=== PATIENT | female | born 1930 | race Caucasian/White ===

== ENCOUNTER 2019-07-20 18:12 | Emergency (ER) | payer MEDICARE ==
[2019-07-20 18:25] VITALS: TEMP 98.6
[2019-07-20] MEDS ORDERED: SODIUM CHLORIDE 0.9% 500 ML 500 ML IV STA (18:40)
[2019-07-20] MEDS ORDERED: LIDOCAINE 5% PATCH TOPICAL STA (18:40)
[2019-07-20 19:19] LABS: Basophils % (A) 0 %; Eosinophils # (A) 0.4 k/uL (0-0.7); Eosinophils % (A) 5 %; HCT 40.3 % (34.0-46.0); HGB 12.9 gm/dL (11.4-16.0); Lymphocytes # (A) 1.4 k/uL (1.0-4.8); Lymphocytes % (A) 20 %; MCH 30.9 pg (25.0-35.0); MCV 96.4 fL (80.0-100.0); Mean Platelet Volume 7.6; Monocytes # (A) 0.4 k/uL (0-1.0); Monocytes % (A) 6 %; Neutrophils # (A) 4.8 k/uL (1.3-7.7); Neutrophils % (A) 67 %; Platelet Count 321 k/uL (150-450); RBC 4.18 m/uL (3.80-5.40); RDW 13.8 % (11.5-15.5); WBC 7.1 k/uL (3.8-10.6)
[2019-07-20 19:28] LABS: INR 0.9 (<1.2); Partial Thromboplastin Time 23.8 sec (22.0-30.0); Prothrombin Time 9.6 sec (9.0-12.0)
[2019-07-20 19:29] LABS: Calcium 9.6 mg/dL (8.4-10.2); Potassium 4.2 mmol/L (3.5-5.1); Total Bilirubin 0.2 mg/dL (0.2-1.3); Total Protein 6.6 g/dL (6.3-8.2)
--- NOTE | 2019-07-20 19:32 | XR ---
EXAMINATION TYPE: PA chest and left rib series, 5 views DATE OF EXAM: 07/20/2019 Comparison: 10/05/2013 Clinical History: 89-year-old female with fall and left rib pain Findings: Heart upper limits of normal in size. Rounded retrocardiac opacity suggests a moderate to large hiata l hernia. Strandy opacity at the left base compatible with atelectasis. Retrocardiac assessment limit ed due to underlying hiatal hernia. No other consolidation or pleural effusion. Underlying S-shaped scoliosis. No displaced left rib fracture seen. Impression: 1. Underlying moderate to large hiatal hernia. This limits assessment of the retrocardiac region but some adjacent strandy opacity suggests atelectasis. 2. No displaced left rib fracture seen.
--- NOTE | 2019-07-20 19:42 | CT ---
EXAMINATION TYPE: CT brain sue wo con DATE OF EXAM: 07/20/2019 COMPARISON: Brain 10/05/2013 HISTORY: 89-year-old female fall with head injury and neck pain CT DLP: 1254 mGycm Automated exposure control for dose reduction was used. Technique: Examination of the head was done in axial plane without intravenous contrast. Coronal and sagittal reconstructions performed. CT of the cervical spine was obtained in axial plane without intravenous injection of contrast mater ial. Coronal and sagittal reformatted images were obtained from the axial views for evaluation of f ractures, spinal alignment and canal. FINDINGS: Head: There is no evidence of acute intracranial hemorrhage, acute ischemic changes, mass effect, or extra -axial fluid collection. There is no effacement of cerebral sulci or basal subarachnoid cisterns. T here is no hydrocephalus. There is no midline shift. Gill-white matter distinction is preserved. Bulging soft tissue density in the right parasellar region, axial image 16 seems to have been present to some extent on 10/05/2013 as well. Metastatic calcifications within the bilateral carotid siphons. Mild bifrontal cortical atrophy and patchy white matter hypodensities in both cerebral hemispheres. Paranasal sinuses and mastoid air cells are well pneumatized. Orbits and globes are intact. No calvar ial fracture. Cervical spine: Degenerative changes left greater than right TMJ. Advanced hypertrophic facet arthropathy and multilevel uncovertebral joint arthropathy. Degenerative grade 2 anterolisthesis C3-C4, grade 1 retrolisthesis C5-C6 and grade 1 anterolisthesis C6-C7 and C7-T1. No acute fracture of the cervical spine. No craniocervical junction probably, predental space widening, or prevertebral soft tissue swelling. Advanced degenerative change C1 dens articulation. Moderate neural foraminal stenoses at C5-C6. Emphysematous change in the visualized upper lungs. Sagittal and coronal reformatted images confirm above findings. COMBINED IMPRESSION: 1. Bulging soft tissue density right parasellar region seems to have been present to some extent on . Some considerations include vascular ectasia of the internal carotid artery, underlying meni ngioma, or underlying cavernous segment ICA aneurysm. Further CTA evaluation recommended to exclude a neurysm. 2. Mild cortical atrophy and patchy changes of chronic small vessel ischemic disease. Otherwise, no a cute intracranial abnormality seen. 3. No acute fracture of the cervical spine. Moderate to advanced spondylotic change with degenerative grade 2 anterolisthesis C3-C4 and additional levels of grade 1 spondylolisthesis. 4. COPD.
[2019-07-20] MEDS ORDERED: KETOROLAC 30 MG/ML 1 ML VIAL IVP STA (20:39)
--- NOTE | 2019-07-20 20:58 | ED ---
General Adult HPI - General Source: patient Mode of arrival: wheelchair Limitations: no limitations <Aparna Wagoner - Last Filed: 07/20/19 21:21> <Charito Harvey - Last Filed: 07/23/19 13:29> - General Chief complaint: Fall Stated complaint: fall, knee/rib pain Time Seen by Provider: 07/20/19 18:33 - History of Present Illness Initial comments: 89-year-old female patient presents to the emergency department today for evaluation after experiencing a fall. Patient states this is her second fall today. States that today she has been feeling increasingly weak. She did recently have a right mastectomy which is experiencing delayed healing. She does have an appointment with Dr. Larry tomorrow for further evaluation of this. Patient states yesterday she had a fall and did strike her head. Denies loss o f consciousness. States she is having some right-sided neck pain. Today patient hit her ribs during the fall and is reporting a sharp pain with deep inspiration and any type of movement. She denies any shortness of breath, cough, or hemoptysis. Denies any back injury. States that she did fall onto her knees and so her left knee is bruised and sore. States she is able to bear weight and has no pain with flexion. Patient denies any recent rash, fever, chills, abdominal pain, nausea, vomiting, diarrhea, constipation, numbness, tingling, dizziness, weakness, hematuria, dysuria, urinary urgency, urinary frequency, headache, visual changes, or any other complaints. (Aparna Wagoner) - Related Data Home Medications Medication Instructions Recorded Confirmed Metoprolol Succinate (ER) [Toprol 50 mg PO DAILY 09/30/13 10/05/13 XL] NIFEdipine [NIFEdipine ER] 30 mg PO DAILY 09/30/13 10/05/13 Pravastatin Sodium [Pravachol] 20 mg PO DAILY 09/30/13 10/05/13 Previous Rx's Medication Instructions Recorded Lidocaine 5% Patch [Lidoderm] 1 patch TOPICAL DAILY #30 patch 07/20/19 Allergies Allergy/AdvReac Type Severity Reaction Status Date / Time No Known Allergies Allergy Verified 07/20/19 18:25 Review of Systems ROS Other: All systems not noted in ROS Statement are negative. <Aparna Wagoner - Last Filed: 07/20/19 21:21> ROS Other: All systems not noted in ROS Statement are negative. <Charito Harvey Renaldo - Last Filed: 07/23/19 13:29> ROS Statement: Those systems with pertinent positive or pertinent negative responses have been documented in the HPI. Past Medical History Past Medical History: Cancer, Dementia, Hypertension Additional Past Medical History / Comment(s): tubercular abcess,pynoidal cyst, Cody Palsy- facial paralysis, hip replacement, breast cancer History of Any Multi-Drug Resistant Organisms: None Reported Past Surgical History: Appendectomy Additional Past Surgical History / Comment(s): D&C, left mastectomy, Past Psychological History: No Psychological Hx Reported Smoking Status: Former smoker Past Alcohol Use History: None Reported Past Drug Use History: None Reported <Aparna Wagoner - Last Filed: 07/20/19 21:21> General Exam Limitations: no limitations General appearance: alert, in no apparent distress, other (This is a well- developed, well-nourished elderly female patient in no acute distress. Vital signs upon presentation are temperature 98.6F, pulse 79, respirations 18, blood pressure 143/70, pulse ox 94% on room air.) Eye exam: Present: normal appearance, PERRL, EOMI. Absent: scleral icterus, conjunctival injection, periorbital swelling ENT exam: Present: normal exam, normal oropharynx, mucous membranes moist Neck exam: Present: normal inspection, full ROM, other (Nontender, no step-off, no deformity to firm midline palpation of the posterior cervical spine. Full range of motion without pain or limitation.). Absent: tenderness, meningismus, lymphadenopathy Respiratory exam: Present: normal lung sounds bilaterally, chest wall tenderness (Left lateral). Absent: respiratory distress, wheezes, rales, rhonchi, stridor Cardiovascular Exam: Present: regular rate, normal rhythm, normal heart sounds. Absent: systolic murmur, diastolic murmur, rubs, gallop, clicks GI/Abdominal exam: Present: soft, normal bowel sounds. Absent: distended, tenderness, guarding, rebound, rigid Extremities exam: Present: full ROM, normal capillary refill, other (There is mild soft tissue swelling and ecchymosis noted to the left anterior knee. No pain with valgus or varus maneuvers. No pain with full range of motion. Skin is otherwise pink, warm, dry. Cap refills less than 3 seconds. Pedal and posttibial pulses are 2+ and equal bilaterally.). Absent: normal inspection, t enderness, pedal edema, joint swelling, calf tenderness Back exam: Present: normal inspection. Absent: vertebral tenderness Neurological exam: Present: alert, oriented X3, CN II-XII intact Psychiatric exam: Present: normal affect, normal mood Skin exam: Present: warm, dry, intact, normal color. Absent: rash <Aparna Wagoner - Last Filed: 07/20/19 21:21> Course Vital Signs 07/20/19 07/20/19 18:22 21:43 Temperature 98.6 F 98.6 F Pulse Rate 79 67 Respiratory 18 15 Rate Blood Pressure 143/70 134/61 O2 Sat by Pulse 94 L 94 L Oximetry EKG Findings - EKG Comments: EKG Findings:: EKG obtained at 1853 shows normal sinus rhythm with a ventricular rate of 69, WV interval 188, QRS duration 86, QTc 412, QTC 441. No evidence of ST elevation or depression <Aparna Wagoner - Last Filed: 07/20/19 21:21> Medical Decision Making - Lab Data Result diagrams: 07/20/19 19:05 07/20/19 19:05 - Radiology Data Radiology results: report reviewed, image reviewed <Aparna Wagoner - Last Filed: 07/20/19 21:21> - Lab Data Result diagrams: 07/20/19 19:05 07/20/19 19:05 <Charito Harvey - Last Filed: 07/23/19 13:29> - Medical Decision Making 89-year-old female patient presented to the emergency department today for evaluation of fall and weakness. Physical examination did reveal left lateral rib tenderness. Contusion to the left anterior knee. Lungs are clear to auscultation. She is neurologically intact with no focal deficits. CT brain and C-spine was negative, did show evidence for possible aneurysm which patient is aware of and is being monitored by her doctor. Labs reviewed and were unremarkable. Left rib series with chest x-ray was obtained and was negative for displaced fracture. Patient will be treated as if she has a rib fracture due to symptoms. She does have an incentive spirometer at home from recent surgery she is instructed to use this. She'll be given a prescription for Lidoderm patches. She is instructed to use a walker for ambulation and to follow-up with her primary care physician for recheck as soon as possible. On reevaluation she is resting comfortably in bed. I did recheck her oxygen saturation which is 97% and her heart rate is 75. She does agree to discharge. Return parameters were discussed in detail. She verbalizes understanding and agrees with this plan. (Aparna Wagoner) I was available for consultation in the emergency department. The history and physical exam were done by the midlevel provider. I was consulted for this patients care. I reviewed the case with the midlevel provider and based on their presentation of the patient, I agree with the assessment, medical decision making and plan of care as documented. Chart was dictated using [employer] dictation software. Attempts were made to correct any dictation errors however some typographical errors may persist. Patient was seen during a national state of emergency due to the Covid-19 pandemic. (Charito Harvey) - Lab Data Lab Results 07/20/19 07/20/19 07/20/19 Range/Units 19:05 19:05 19:05 WBC 7.1 (3.8-10.6) k/uL RBC 4.18 (3.80-5.40) m/uL Hgb 12.9 (11.4-16.0) gm/dL Hct 40.3 (34.0-46.0) % MCV 96.4 (80.0-100.0) fL MCH 30.9 (25.0-35.0) pg MCHC 32.0 (31.0-37.0) g/dL RDW 13.8 (11.5-15.5) % Plt Count 321 (150-450) k/uL Neutrophils % 67 % Lymphocytes % 20 % Monocytes % 6 % Eosinophils % 5 % Basophils % 0 % Neutrophils # 4.8 (1.3-7.7) k/uL Lymphocytes # 1.4 (1.0-4.8) k/uL Monocytes # 0.4 (0-1.0) k/uL Eosinophils # 0.4 (0-0.7) k/uL Basophils # 0.0 (0-0.2) k/uL PT 9.6 (9.0-12.0) sec INR 0.9 (<1.2) APTT 23.8 (22.0-30.0) sec Sodium 136 L (137-145) mmol/L Potassium 4.2 (3.5-5.1) mmol/L Chloride 102 (98-107) mmol/L Carbon Dioxide 29 (22-30) mmol/L Anion Gap 5 mmol/L BUN 13 (7-17) mg/dL Creatinine 1.03 (0.52-1.04) mg/dL Est GFR (CKD-EPI)AfAm 56 (>60 ml/min/1.73 sqM) Est GFR (CKD-EPI)NonAf 48 (>60 ml/min/1.73 sqM) Glucose 97 (74-99) mg/dL Plasma Lactic Acid Salas (0.7-2.0) mmol/L Calcium 9.6 (8.4-10.2) mg/dL Total Bilirubin 0.2 (0.2-1.3) mg/dL AST 20 (14-36) U/L ALT 9 (4-34) U/L Alkaline Phosphatase 63 (38-126) U/L Troponin I (0.000-0.034) ng/mL Total Protein 6.6 (6.3-8.2) g/dL Albumin 4.0 (3.5-5.0) g/dL Urine Color Urine Appearance (Clear) Urine pH (5.0-8.0) Ur Specific Kerrick (1.001-1.035) Urine Protein (Negative) Urine Glucose (UA) (Negative) Urine Ketones (Negative) Urine Blood (Negative) Urine Nitrite (Negative) Urine Bilirubin (Negative) Urine Urobilinogen (<2.0) mg/dL Ur Leukocyte Esterase (Negative) Urine RBC (0-5) /hpf Urine WBC (0-5) /hpf Ur Squamous Epith Cells (0-4) /hpf Urine Bacteria (None) /hpf Urine Mucus (None) /hpf 07/20/19 07/20/19 07/20/19 Range/Units 19:05 19:05 20:38 WBC (3.8-10.6) k/uL RBC (3.80-5.40) m/uL Hgb (11.4-16.0) gm/dL Hct (34.0-46.0) % MCV (80.0-100.0) fL MCH (25.0-35.0) pg MCHC (31.0-37.0) g/dL RDW (11.5-15.5) % Plt Count (150-450) k/uL Neutrophils % % Lymphocytes % % Monocytes % % Eosinophils % % Basophils % % Neutrophils # (1.3-7.7) k/uL Lymphocytes # (1.0-4.8) k/uL Monocytes # (0-1.0) k/uL Eosinophils # (0-0.7) k/uL Basophils # (0-0.2) k/uL PT (9.0-12.0) sec INR (<1.2) APTT (22.0-30.0) sec Sodium (137-145) mmol/L Potassium (3.5-5.1) mmol/L Chloride (98-107) mmol/L Carbon Dioxide (22-30) mmol/L Anion Gap mmol/L BUN (7-17) mg/dL Creatinine (0.52-1.04) mg/dL Est GFR (CKD-EPI)AfAm (>60 ml/min/1.73 sqM) Est GFR (CKD-EPI)NonAf (>60 ml/min/1.73 sqM) Glucose (74-99) mg/dL Plasma Lactic Acid Salas 1.1 (0.7-2.0) mmol/L Calcium (8.4-10.2) mg/dL Total Bilirubin (0.2-1.3) mg/dL AST (14-36) U/L ALT (4-34) U/L Alkaline Phosphatase (38-126) U/L Troponin I <0.012 (0.000-0.034) ng/mL Total Protein (6.3-8.2) g/dL Albumin (3.5-5.0) g/dL Urine Color Light Yellow Urine Appearance Clear (Clear) Urine pH 6.0 (5.0-8.0) Ur Specific Kerrick 1.010 (1.001-1.035) Urine Protein Negative (Negative) Urine Glucose (UA) Negative (Negative) Urine Ketones Negative (Negative) Urine Blood Negative (Negative) Urine Nitrite Negative (Negative) Urine Bilirubin Negative (Negative) Urine Urobilinogen <2.0 (<2.0) mg/dL Ur Leukocyte Esterase Trace H (Negative) Urine RBC 1 (0-5) /hpf Urine WBC 3 (0-5) /hpf Ur Squamous Epith Cells 1 (0-4) /hpf Urine Bacteria Rare H (None) /hpf Urine Mucus Rare H (None) /hpf - Radiology Data CT brain C-spine was obtained. Report was reviewed in its entirety. Impression by Dr. Carmona shows bulging soft tissue density right parasternal region which is seems to have been present to some extent in . Some considerations include vascular ectasia of the internal carotid artery, underlying meningioma, or underlying cavernous segment ICA aneurysm. Further CTA evaluation recommended to exclude aneurysm. Mild cortical atrophy and patchy changes of chronic small vessel ischemic disease. Otherwise, no acute intracranial abnormalities seen. No acute fracture of the cervical spine. Moderate to advanced spondylotic changes with degenerative grade 2 anterolisthesis C3 to C4 and additional levels of grade 1 spondylolisthesis. COPD. 5 views of the ribs and chest is obtained. Report was reviewed in its entirety. Impression by Dr. Carmona shows underlying moderate to large hiatal hernia. This limited assessment of the retrocardiac region with some adjacent strandy opacity suggesting atelectasis. No displaced left rib fracture seen (Aparna Wagoner) Disposition Is patient prescribed a controlled substance at d/c from ED?: No Time of Disposition: 21:19 <Aparna Wagoner - Last Filed: 07/20/19 21:21> <Charito Harvey - Last Filed: 07/23/19 13:29> Clinical Impression: Left rib fracture, Contusion of left knee, Head injury, Weakness Disposition: HOME SELF-CARE Condition: Good Instructions (If sedation given, give patient instructions): Rib Fracture (ED), Fall Prevention for Older Adults (ED), Head Injury (ED), Contusion in Adults (ED) Additional Instructions: Perform coughing and deep breathing exercises 10 times an hour while awake. Follow-up with your primary care physician for recheck in 1-2 days. Return to the emergency department immediately for any new, worsening, or concerning symptoms. Prescriptions: Lidocaine 5% Patch [Lidoderm] 1 patch TOPICAL DAILY #30 patch Referrals: Edgar Lagunas MD [Primary Care Provider] - 1-2 days
[2019-07-20 21:11] LABS: Appearance,Urine Clear (Clear); Bacteria,Urine Rare /hpf; Bilirubin,Urine Negative (Negative); Blood,Urine Negative (Negative); Color,Urine Light Yellow; Glucose,Urine (UA) Negative (Negative); Ketones,Urine Negative (Negative); Leukocyte Esterase,Urine Trace (Negative); Mucus,Urine Rare /hpf; Nitrite,Urine Negative (Negative); Protein,Urine Negative (Negative); RBC,Urine 1 /hpf (0-5); Squamous Epithelial Cell,Urine 1 /hpf (0-4); Urobilinogen,Urine <2.0 mg/dL (<2.0); WBC,Urine 3 /hpf (0-5)
[2019-07-20 21:45] VITALS: BP 134/61; PULSE 67; RESP 15
== END 2019-07-20 21:43 | disposition home or self-care (01) ==
LOC: EC 18:12
DX: S22.32XA Fracture of one rib, left side, initial encounter for closed fracture (principal); S80.02XA Contusion of left knee, initial encounter; S09.90XA Unspecified injury of head, initial encounter; R53.1 Weakness; I10 Essential (primary) hypertension; G51.0 Bell's palsy; F03.90 Unspecified dementia, unspecified severity, without behavioral disturbance, psychotic disturbance, mood disturbance, and anxiety; Z79.899 Other long term (current) drug therapy; Z85.3 Personal history of malignant neoplasm of breast; Z87.891 Personal history of nicotine dependence; Z90.12 Acquired absence of left breast and nipple; W19.XXXA Unspecified fall, initial encounter
CPT/HCPCS: 99284 ×2; 96374 ×2; 96361 ×2; 36415; 93005; 80053; 83605; 84484; 85025; 85610; 85730; 81001; 71101; 72125; 70450; J1885